=== PATIENT | male | born 1970 | race Caucasian/White ===

== ENCOUNTER 2016-09-09 06:28 | Inpatient (IN) | payer OTHER ==
[~2016-09-09] VITALS: Ht 162.6 cm; Wt 79.3 kg
[2016-09-09] VITALS (16 sets, daily range): BP systolic 78–103; BP diastolic 30–58
[~2016-09-09 06:28] MED LIST: AZO CRANBERRY1 EACH PO; CALCIUM ACETAT667 MG PO; CEPACOL SORE T1 EAC9 MM; COLCRYS0.6 MG PO; DAILY VITAMIN1 EAC8 PO; FEOSOL325 MG PO; FLAX OIL1000 MG PO; FOLIC ACID1 MG PO; GUIATUSS100 MG/5 M PO; K-DUR20 MEQ PO; LAMICTAL25 MG PO; LIPITOR10 MG PO; LONG ACTING NAS15 ML BOTH NARES; LOVENOX100 MG/1 M SC; MAXIPIME1 GM IM; MIRALAX17 GM PO; MITRAZOL 2% CRE45 GM TP; PHENADOZ25 MG PR; REVATIO20 MG PO; SENNA CONCENTR8.6 MG PO; SYNTHROID88 MCG PO; TYLENOL REGULA325 MG PO; VITAMIN D250000 UNIT PO
[2016-09-09 07:25] LABS: BASOPHIL COUNT 0.1 K/uL (0-0.1); EOSINOPHIL (%) 0.2 % (0-5); HEMATOCRIT 51.7 % (38.0-50.0); IMMATURE GRANULOCYTE COUNT 1.8 K/uL; LYMPHOCYTE COUNT 2.1 K/uL (1.0-2.8); MCH 29.1 PG (29.0-34.0); MCHC 34.2 G/DL (30.0-36.0); MEAN PLAT.VOLUME 11.3 uM^3 (9.0-12.4); MONOCYTE (%) 7.2 % (3-12); MONOCYTE COUNT 1.2 K/uL (0-0.8); NEUTROPHIL (%) 78.8 % (45-76); NEUTROPHIL COUNT 13.5 K/uL (1.8-6.4); PLATELET COUNT 161 K/uL (156-360); RBC DIS.WIDTH-CV 15.6 % (11.8-14.6); RBC DIS.WIDTH-SD 47.9 % (39-53); RED BLOOD COUNT 6.08 M/uL (4.00-5.50); WHITE BLOOD COUNT 17.2 K/uL (4.1-10.2)
[2016-09-09 07:33] LABS: INTER. NORMALIZED RATIO 1.2; PROTHROMBIN TIME 12.3 (9.2-11.2)
[2016-09-09 08:12] LABS: BASE EXCESS -5.9 mEq/L (-3 to +3); BICARBONATE 21.9 mEq/L (22-26); CARBOXY HGB 1.3 % (0-5); METHEMOGLOBIN 0.7 % (0-1.5)
[2016-09-09 08:14] LABS: DEVICE HFNC; O2 FLOW 15 L/MIN; PCO2 50 mm Hg (35-45); PO2 < 32 mm Hg (80-100); SITE RR; pH 7.25 (7.35-7.45)
[2016-09-09 08:15] LABS: COMMENTS - BLOOD GASES A+C+
[2016-09-09] MEDS ORDERED: TAB-A-VITE1 EACH PO (09:24)
[2016-09-09] MEDS ORDERED: SALINE NASAL SP45 ML BOTH NARES (09:27)
[2016-09-09] MEDS ORDERED: LORADAMED10 MG PO (09:33)
[2016-09-09] MEDS ORDERED: CALCIUM ACETAT667 MG PO (09:37)
[2016-09-09] MEDS ORDERED: COLACE100 MG PO (09:40)
[2016-09-09] MEDS ORDERED: PROCTOFOAM-HC10 GM PR (09:42)
[2016-09-09] MEDS ORDERED: AFRIN,GENASAL D15 ML BOTH NARES (09:43)
[2016-09-09] MEDS ORDERED: KETOCONAZOLE120 ML TP (09:45)
[2016-09-09 09:53] LABS: ADD MIUA? YES; BILIRUBIN NEGATIVE; BLOOD SMALL; COLOR YELLOW ((YELLOW)); GLUCOSE (STRIP) 100; KETONES NEGATIVE; LEUKOCYTES NEGATIVE; NITRITE NEGATIVE; PH, URINE 6.5 (5-8); PROTEIN (STRIP) >=300; SPECIFIC GRAVITY 1.022 (1.000-1.030); UROBILINOGEN 0.2 MG/DL (0.2-1.0)
[2016-09-09 10:09] LABS: BACTERIA NONE SEEN; CASTS NONE SEEN /LPF; CRYSTALS NONE SEEN; EPITHELIAL CELLS RARE; MUCUS NONE SEEN; PATHOLOGICAL CAST NONE SEEN; RED BLOOD CELLS 0-5 /HPF (0-5); SMALL ROUND CELL NONE SEEN; UCUL ADDED? NO; WHITE BLOOD CELLS 0-5 /HPF (0-5); YEAST-LIKE CELL NONE SEEN
[2016-09-09 10:32] LABS: CHLORIDE 106 mEq/L (99-109); POTASSIUM 5.4 mEq/L (3.7-5.4); SODIUM 137 mEq/L (136-147)
[2016-09-09 10:34] LABS: GLUCOSE 150 mg/dL (70-99)
[2016-09-09 10:35] LABS: ANION GAP 14 MEQ/L (2-14)
[2016-09-09 10:36] LABS: TOTAL BILIRUBIN 0.3 mg/dL (0.0-1.0)
[2016-09-09 10:37] LABS: ALKALINE PHOSPHATASE 86 IU/L (3-129)
[2016-09-09 10:38] LABS: GFR ESTIMATE (CALCULATED) 13 mL/min/
[2016-09-09 10:39] LABS: UREA NITROGEN (BUN) 41 mg/dL (9-23)
[2016-09-09 10:41] LABS: CREATINE KINASE 27 IU/L (1-294); LIPASE 12 U/L (1.0-51.0); TOTAL CK 27 IU/L (1-294)
[2016-09-09 10:43] LABS: TROP-I INTERPRETATION NEGATIVE; TROPONIN-I < 0.01 ng/mL (0.0-0.30)
[2016-09-09 10:46] LABS: CK-MB 0.7 ng/mL (0.0-4.9)
[2016-09-09 17:30] LABS: METH RESISTANT S AUREUS PCR POSITIVE (NEGATIVE)
[2016-09-09 17:41] LABS: PROBE CHECK PASS
[2016-09-10] VITALS (8 sets, daily range): BP systolic 68–90; BP diastolic 26–38
[2016-09-10 07:29] LABS: INTERNAL CONTROL VALID? YES
== END 2016-09-10 09:05 | DRG 871 ==
LOC: EME 06:28 → 4WEST 09:45 → EDOF 09:45 → 4WEST 12:59
PROVIDERS: Emergency Medicine; Internal Medicine Critical Care Medicine
DX: A41.9 Sepsis, unspecified organism (principal); R65.21 Severe sepsis with septic shock; J18.0 Bronchopneumonia, unspecified organism; Y95 Nosocomial condition; I27.2 Other secondary pulmonary hypertension; J96.20 Acute and chronic respiratory failure, unspecified whether with hypoxia or hypercapnia; N17.9 Acute kidney failure, unspecified; N18.9 Chronic kidney disease, unspecified; Q90.9 Down syndrome, unspecified; Q24.9 Congenital malformation of heart, unspecified; I27.89 Other specified pulmonary heart diseases; D75.1 Secondary polycythemia; Z51.5 Encounter for palliative care; Z66 Do not resuscitate; E03.9 Hypothyroidism, unspecified; M10.9 Gout, unspecified; M17.12 Unilateral primary osteoarthritis, left knee; E66.9 Obesity, unspecified; Z90.5 Acquired absence of kidney
CPT/HCPCS: 36600; 71010; 71250; 80053; 81003; 82550; 82553; 82803; 83605; 83690; 84484; 85025; 85610; 87040; 87070; 87081; 87205; 87449; 87502; 87641; 93005; 93306; 94640; 94640 76; 94760; 94799; 99202; 99281; 99285; J2060; J2270; J2543; J3370; J7030; J7050; J7120